=== PATIENT | female | born 2000 | race Caucasian/White ===

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

== ENCOUNTER 2021-05-28 01:53 | Emergency (ER) | payer OTHER ==
[~2021-05-28] VITALS: Ht 167.6 cm; Wt 131.0 kg
[~2021-05-28 01:53] MED LIST changes: +CIPR5DRO RIGHTEYE
[2021-05-28 02:00] VITALS: BP 159/41
[2021-05-28] MEDS ORDERED: NORG1TAB6 PO (02:15)
[2021-05-28] MEDS ORDERED: KETOROLAC 60 MG/2 ML VIAL. IM ONE (02:15)
[2021-05-28] MEDS ORDERED: ONDANSETRON ODT 4 MG TAB.RAPDIS PO ONE (02:15)
--- NOTE | 2021-05-28 02:15 | PHYS DOC ---
Past History Past Medical History: No Pertinent History Past Surgical History: No Surgical History Alcohol Use: None Drug Use: None Adult General Chief Complaint Chief Complaint: FLANK PAIN HPI HPI Patient is a 20-year-old female with a past medical history significant for episodes of kidney stones who presents for flank pain, 7 out of 10, sharp in nature over the last day or so, with no associated nausea. Denies any recent trauma, travels, illnesses, fevers, chest pain, shortness of breath, other abdominal pain, nausea, vomiting, diarrhea. Denies any hematuria, dysuria. Review of Systems Review of Systems Review of systems otherwise unremarkable except noted in HPI Allergies Allergies Allergies Coded Allergies Type Severity Reaction Last Updated Verified No Known Drug Allergies 04/20/20 No Physical Exam Physical Exam Constitutional: Well developed, well nourished, no acute distress, non-toxic appearance. [] HENT: Normocephalic, atraumatic, bilateral external ears normal, oropharynx moist, no oral exudates, nose normal. [] Neck: Normal range of motion, no tenderness, supple, no stridor. [] Cardiovascular: Sinus tachycardia Lungs & Thorax: No respiratory distress Abdomen: soft, no tenderness, no masses, no pulsatile masses. [] Skin: Warm, dry, no erythema, no rash. [] Back: no CVA tenderness. [] Neurologic: Alert and oriented X 3, no focal deficits noted. [] Psychologic: Affect normal, judgement normal, mood normal. [] EKG EKG [] Radiology/Procedures Radiology/Procedures [] Heart Score C/O Chest Pain: No Risk Factors: Risk Factors: DM, Current or recent (<one month) smoker, HTN, HLP, family history of CAD, obesity. Risk Scores: Risk Factors: DM, Current or recent (<one month) smoker, HTN, HLP, family history of CAD, obesity. Course & Med Decision Making Course & Med Decision Making Patient is a 20-year-old female with history of renal stones who presents with flank pain Vital signs notable for sinus tachycardia. Physical exam noted above. Given pain medicine negative. Urinalysis not suggestive of urinary tract infection. CT with no acute findings Discussed all findings with patient. Discussed differential including passed stone. Advised on symptom control at home. Advised to follow-up with primary care as needed. Gave return precautions to the ED. Patient grateful, verbalized understanding and agreed with plan of discharge. Dragon Disclaimer Dragon Disclaimer This electronic medical record was generated, in whole or in part, using a voice recognition dictation system. Departure Departure: Impression: Primary Impression: Flank pain Disposition: HOME / SELF CARE / HOMELESS Condition: GOOD Referrals: SVETA CHAVARRIA (PCP) Patient Instructions: Flank Pain Additional Instructions: Thank you for coming into the emergency department tonight and allowing us to take care of you. Please read the attached information carefully to go over things we discussed. You can take Tylenol, ibuprofen, and Benadryl as needed. Please take your Please follow-up on Saturday with your primary care physician to follow-up on your ED visit and set up a follow-up as needed. Please come back with new or concerning symptoms as discussed. KHADAR NDIAYE MD May 28, 2021 02:15
[2021-05-28] MEDS ORDERED: KETOROLAC 30 MG/ML VIAL. ONE (02:18)
[2021-05-28 02:34] LABS: BACTERIA,URINE FEW /HPF (0-FEW); BILIRUBIN,URINE NEG (NEG); CLARITY,URINE CLEAR; COLOR,URINE YELLOW; GLUCOSE,URINE NEG (NEG); GRANULAR CASTS,URINE OCC /HPF; HYALINE CASTS, URINE OCC /HPF; NITRITE,URINE NEG (NEG); SQUAMOUS EPITHELIAL CELL,UR MOD /LPF; UROBILINOGEN,URINE 0.2 mg/dL (0.2 mg/dL)
--- NOTE | 2021-05-28 03:01 | RAD ---
CT ABDOMEN+PELVIS WO INDICATION: Right side flank pain; hx of kidney stones EXAM: Noncontrast CT of the abdomen and pelvis. Coronal and sagittal reformatted images were perform ed. PQRS compliance statement: One or more of the following individualized dose reduction techniques were utilized for this examinat ion: 1. Automated exposure control 2. Adjustment of the mA and/or kV according to patient size 3. Use of iterative reconstruction technique COMPARISON: 10/15/2019 FINDINGS: No free air, free fluid, or fluid collection. Lower chest: The visualized lower lungs are aerated. No pleural or pericardial effusion. ABDOMEN: Liver: The noncontrast liver is homogeneous in attenuation. Gallbladder and biliary: Normal gallbladder without radiopaque stone. Normal caliber bile ducts. Spleen: Normal spleen. Pancreas: The noncontrast pancreas is homogeneous in attenuation without peripancreatic inflammatory changes. Adrenal glands: Normal adrenal glands. Kidneys and ureters: No hydronephrosis. There may be a couple of punctate nonobstructive renal calcul i. GI tract: The stomach is decompressed and poorly evaluated. Normal caliber small bowel and colon. Nor mal appendix. Vascular structures: Normal caliber abdominal aorta. Lymph nodes: No lymphadenopathy in the abdomen or pelvis. PELVIS: Genitourinary system: Urinary bladder is decompressed. Uterus is present. SKELETAL STRUCTURES AND SOFT TISSUES: No fracture or destructive lesion in the visualized skeleton. IMPRESSION: No acute findings. No hydronephrosis. There may be a couple of punctate nonobstructive renal calculi. Electronically signed by: Kraig Wong MD (05/28/2021 2:59 AM) [facility]
[2021-05-28] MEDS ORDERED: HYDR-2765 PO (07:19)
== END 2021-05-28 03:10 | disposition home or self-care (01) ==
LOC: ER 01:53
DX: R10.9 Unspecified abdominal pain (principal)
CPT/HCPCS: 74176; 81001; 81025; 96372; 99284; J1885; J3010; Q0162

== ENCOUNTER 2021-05-28 06:51 | Emergency (ER) | payer OTHER ==
[2021-05-28 02:00] VITALS: BP 159/41
[~2021-05-28 06:51] MED LIST changes: +NORG1TAB6 PO
[2021-05-28] MEDS ORDERED: HYDROcodone/APAP 7.5/325MG 1 TAB TABLET PO ONE (07:15)
[2021-05-28] MEDS ORDERED: HYDR-2765 PO (07:19)
--- NOTE | 2021-05-28 07:20 | PHYS DOC ---
Past History Past Medical History: No Pertinent History Past Surgical History: No Surgical History Alcohol Use: None Drug Use: None Adult General Chief Complaint Chief Complaint: FLANK PAIN HPI HPI Patient is a 20-year-old female presenting for ongoing left-sided flank pain. Was seen here in our ER in recently discharged after formal work-up that included noninfectious urinalysis showing trace blood and CT abdomen pelvis showing no acute abnormalities. She received 100 mcg of fentanyl and 30 mg Toradol which improved her symptoms temporarily but reports after going home, pain reoccurred and was not responsive to Tylenol and/or ibuprofen prompting her to come back in for evaluation. She is convinced it is a kidney stone as pain feels identical to kidney stone pain in the past. She is unsure if she passed anything as she has not been straining her urine. She is here for pain control. Otherwise healthy, no fever, no other concerning signs or symptoms Review of Systems Review of Systems Fourteen body systems of review of systems have been reviewed. See HPI for pertinent positives and negative responses, other rodriguez all other systems are negative, non-pertinent or non-contributory Allergies Allergies Allergies Coded Allergies Type Severity Reaction Last Updated Verified No Known Drug Allergies 04/20/20 No Physical Exam Physical Exam Constitutional: Well developed, well nourished, obese, moderate distress due to pain but overall nontoxic in appearance HENT: Normocephalic, atraumatic, bilateral external ears normal, oropharynx moist, no oral exudates, nose normal. Eyes: PERRLA, EOMI, conjunctiva normal, no discharge. Neck: Normal range of motion, no tenderness, supple, no stridor. Cardiovascular: Heart rate regular, sinus rhythm, no murmurs rubs or gallops Lungs & Thorax: Bilateral breath sounds clear to auscultation Abdomen: Bowel sounds normal, soft and protuberant, no tenderness, no masses, no pulsatile masses. Nonsurgical abdomen, no peritoneal signs Skin: Warm, dry, no erythema, no rash. Back: No tenderness, no CVA tenderness. There is pain deep to bilateral flanks Extremities: No tenderness, no cyanosis, no clubbing, ROM intact, no edema. Neurologic: Alert and oriented X 3, grossly normal motor & sensory function, no focal deficits noted. Psychologic: Anxious affect and mood Current Patient Data Vital Signs Vital Signs Date Time Temp Pulse Resp B/P (MAP) Pulse Ox O2 Delivery O2 Flow Rate FiO2 05/28/21 07:24 18 Vital Signs Date Time Temp Pulse Resp B/P (MAP) Pulse Ox O2 Delivery O2 Flow Rate FiO2 05/28/21 07:24 18 Lab Results Current Medications Medications (Trade) Dose Ordered Sig/George Route PRN Reason Start Time Stop Time Status Last Admin Dose Admin Acetaminophen/ Hydrocodone Bitart (Lortab 7.5/325) 1 tab 1X ONCE PO 05/28/21 07:15 05/28/21 07:18 DC 05/28/21 07:24 EKG EKG [] Radiology/Procedures Radiology/Procedures [] Heart Score C/O Chest Pain: No Risk Factors: Risk Factors: DM, Current or recent (<one month) smoker, HTN, HLP, family history of CAD, obesity. Risk Scores: Risk Factors: DM, Current or recent (<one month) smoker, HTN, HLP, family history of CAD, obesity. Course & Med Decision Making Course & Med Decision Making ABCs unremarkable HPI physical exam and recent extensive work-up reviewed. Patient presented with blood in urine, not on menstrual cycle. She is not . CT imaging nonconcerning for any obstructing stones Prior physician correctly advised that patient is suffering from recently passed stone and/or incidental finding of stones that are nonlimiting and embedded with an kidney in nature Nonetheless, joint decision made to start short-term opiate pain medication for severe pain purposes only one Tylenol and ibuprofen do not improve symptoms adequately with straining of urine and close outpatient follow-up Dragon Disclaimer Dragon Disclaimer This electronic medical record was generated, in whole or in part, using a voice recognition dictation system. Departure Departure: Impression: Primary Impression: Flank pain Disposition: 01 HOME / SELF CARE / HOMELESS Condition: STABLE Referrals: SVETA CHAVARRIA (PCP) Additional Instructions: You were seen for flank pain and bloody urine. You most likely have a kidney stone that will and/or recently passed. We are writing you a prescription for pain medication. You should strain your urine to look for the stone. You will need to follow up with the urologists as soon as possible. Your CT abdomen pelvis imaging study did not show any signs that your stone is obstructing anything. You should return to the ED if you develop worsening pain, fever, continued bloody urine, lightheadedness, shortness of breath, chest pain, or any other new or concerning symptoms. Scripts Hydrocodone Bit/Acetaminophen (HYDROCODONE-APAP 7.5-325 ) 1 Each Tablet 1 TAB PO PRN Q6HRS PRN for PAIN, #14 TAB 0 Refills Prov: RONALD OSORIO DO 05/28/21 RONALD OSORIO DO May 28, 2021 07:20
== END 2021-05-28 07:26 | disposition home or self-care (01) ==
LOC: ER 06:51
DX: R10.9 Unspecified abdominal pain (principal)
CPT/HCPCS: 99283